=== PATIENT | male | born 1935 | race Caucasian/White ===

== ENCOUNTER 2017-06-12 05:03 | Observation (INO) | payer MEDICARE ==
[~2017-06-12] VITALS: Ht 165.1 cm; Wt 59.4 kg
[2017-06-12] VITALS (13 sets, daily range): BP systolic 137–174; BP diastolic 73–114
[~2017-06-12 05:03] MED LIST: ASCO500C3 PO; BELLADONNA ALK/OPIUM 60MG SUPP PR PRN; CARB-126 PO; CYAN1000 IJ; FINA5TAB67 PO; IRON150C19 PO; MULT1TAB64 PO; SULF-198 PO; TERA5CAP59 PO; VER100 PO; VITAMIN B SHOT
[2017-06-12] MEDS ORDERED: LIDOCAINE/SOD BICARB 8.4% SYR ID ONE (13:30)
[2017-06-12] MEDS ORDERED: FAMOTIDINE 20 MG TAB PO ONE (13:30)
[2017-06-12] MEDS ORDERED: NORMOSOL R SOLN(*) 1000 ML BAG 1,000 ML IV PRN (13:30)
[2017-06-12] MEDS ORDERED: cefTRIAXone 1 GM VIAL IVP ONE (13:30)
[2017-06-12] MEDS ORDERED: MIDAZOLAM 2 MG/2 ML VIAL IVP PRN (13:30)
[2017-06-12] MEDS ORDERED: PROPOFOL EMUL(*) 10MG/ML 20 ML 20 ML ONE (17:20)
[2017-06-12] MEDS ORDERED: ONDANSETRON 4 MG/2 ML VIAL ONE (17:20)
[2017-06-12] MEDS ORDERED: DEXAMETHASONE SOD PHOS 10MG/ML ONE (17:20)
[2017-06-12] MEDS ORDERED: LIDOCAINE MPF 1% 5 ML VIAL ONE (17:20)
[2017-06-12] MEDS ORDERED: GENTAMICIN 80 MG/2 ML VIAL ONE (17:42)
[2017-06-12] MEDS ORDERED: BELLADONNA ALK/OPIUM 60MG SUPP PR ONE (17:50)
[2017-06-12] MEDS ORDERED: WATER FOR IRRIG,STERILE 3000ML IR ONE (18:07)
[2017-06-12] MEDS ORDERED: GLYCOPYRROLATE 0.2 MG/ML SDV ONE (18:40)
[2017-06-12] MEDS ORDERED: PROPANTHELINE BROMIDE 15MG TAB PO PRN (18:45)
[2017-06-12] MEDS ORDERED: LR(*) 1000 ML BAG 1,000 ML IV PRN (18:45)
[2017-06-12] MEDS ORDERED: GLYCOPYRROLATE 0.2 MG/ML SDV IVP PRN (18:45)
[2017-06-12] MEDS ORDERED: FLUSH 10 ML SYR IVP PRN (18:45)
[2017-06-12] MEDS ORDERED: ACETAMIN/CODEINE #3 300-30 MG PO PRN (18:45)
[2017-06-12] MEDS ORDERED: ZOLPIDEM TARTRATE 5 MG TAB PO PRN (18:45)
[2017-06-12] MEDS ORDERED: ONDANSETRON 4 MG/2 ML VIAL IVP PRN (18:45)
[2017-06-12] MEDS ORDERED: HYDROmorphone PCA 6 MG/30 ML IV PRN (18:50)
[2017-06-12] MEDS ORDERED: NALOXONE HCL 0.4 MG/ML VIAL IVP PRN (18:50)
[2017-06-12] MEDS: GENTAMICIN/NS 80 MG/100 ML PB 100 ML IVPB SCH (20:56)
[2017-06-12] MEDS: NEOMYCIN/POLYMYX/BACITR OINT 1 PACKET TP SCH (20:56)
[2017-06-12] MEDS: BENZALKONIUM CL 1:750 TOP SOLN TP SCH (20:56)
[2017-06-12] MEDS: FAMOTIDINE 20 MG TAB PO SCH (20:58)
[2017-06-12] MEDS: DOCUSATE SODIUM 100 MG CAP PO SCH (21:00)
[2017-06-12] MEDS ORDERED: WATER FOR IRRIG,STERILE 3000ML IR PRN (21:15)
--- NOTE | 2017-06-12 22:11 | Hospitalist Progress Note ---
Subjective Progress Notes Subjective Asked to see the patient postoperatively s/p TUR of the median lobe of the prostate. The patient is doing well postoperatively. He was initially admitted 06/04/17 with bleeding from the urinary tract. He was found to have bleeding from his prostate gland at that time. The bleeding was stopped and he was transfused. He returns now to have limited TURP as above. The patient's PMH is significant for advanced Parkinson's disease. Per his external medication history he takes Sinemet 25/100mg and fills 162 tabs for 27 days which would equal 6 tabs daily. The patient is unable to give a medication history. Physical Exam Vital Signs Date Time Temp Pulse Resp B/P (MAP) Pulse Ox O2 Delivery O2 Flow Rate FiO2 06/12/17 19:40 61 12 99 06/12/17 14:13 99.4 174/80 (111) Room Air Intake and Output 06/13/17 07:00 Intake Total 1200 ml Output Total 400 ml Balance 800 ml Intake IV Total 1200 ml Output Urine Total 400 ml General Appearance: Alert, Awake, No Acute Distress Neuro: Other (Masked facies. Bradykinesia with movement and speech.) Eyes: PERRLA Cardiovascular: Regular Rate and Rhythm Respiratory: Clear to Auscultation GI: Soft and Non-Tender Extremities: Warm, Perfused, Other (Excellent distal pulses.) Integumentary: Skin Intact without Lesion / Mass Psych: Appropriate Mood & Affect Assessment and Plan Problems: (1) S/P transurethral resection of prostate Status: Acute Assessment & Plan: Doing well postoperatively. See Dr. Hauser's notes for complete details. (2) Parkinson disease Status: Chronic Assessment & Plan: Will place on Sinemet 25/100 qid and clarify dosing with the patient's family in the morning. Time Spent on Plan of Care: < 30 min IRENE THOMAS MD Jun 12, 2017 22:11
[2017-06-12] MEDS: CARBIDOPA/LEVODOPA 25/100 TAB PO SCH (22:49)
[2017-06-13 01:00] VITALS: BP 135/68
[2017-06-13 02:48] VITALS: BP 140/67
[2017-06-13 07:48] VITALS: BP 143/68
[2017-06-13] MEDS ORDERED: SALINE 0.65% NAS SPR 44 ML BTL PRN (08:35)
--- NOTE | 2017-06-13 08:39 | Hospitalist Progress Note ---
Subjective Progress Notes Subjective Pt. complains of a stuffy nose today. Physical Exam Vital Signs Date Time Temp Pulse Resp B/P (MAP) Pulse Ox O2 Delivery O2 Flow Rate FiO2 06/13/17 07:55 97 Room Air 06/13/17 07:48 97.6 65 16 143/68 (93) 06/12/17 19:45 1.0 General Appearance: Alert, Awake, No Acute Distress Neuro: Other (Masked facies. Bradykinesia.) Eyes: PERRLA Cardiovascular: Regular Rate and Rhythm GI: Soft and Non-Tender Extremities: Warm Psych: Appropriate Mood & Affect Assessment and Plan Problems: (1) S/P transurethral resection of prostate Status: Acute Assessment & Plan: Doing well postoperatively. See Dr. Hauser's notes for complete details. (2) Parkinson disease Status: Chronic Assessment & Plan: Will place on Sinemet 25/100 qid and clarify dosing with the patient's family today. (3) HTN (hypertension) Status: Chronic Assessment & Plan: The patient has been started on a low dose of verapamil 100mg daily. Will order. Exam Sepsis Risk: No Definite Risk IRENE THOMAS MD Jun 13, 2017 08:39
[2017-06-13] MEDS: BENZALKONIUM CL 1:750 TOP SOLN TP SCH (08:42)
[2017-06-13] MEDS: CARBIDOPA/LEVODOPA 25/100 TAB PO SCH (08:43)
[2017-06-13] MEDS: GENTAMICIN/NS 80 MG/100 ML PB 100 ML IVPB SCH (08:43)
[2017-06-13] MEDS: DOCUSATE SODIUM 100 MG CAP PO SCH (08:43)
[2017-06-13] MEDS: NEOMYCIN/POLYMYX/BACITR OINT 1 PACKET TP SCH (08:43)
[2017-06-13] MEDS: FAMOTIDINE 20 MG TAB PO SCH (08:43)
[2017-06-13] MEDS ORDERED: CARB-94 PO (08:47)
[2017-06-13 08:55] VITALS: Ht 165.1 cm; Wt 59.4 kg
[2017-06-13] MEDS ORDERED: VERAPAMIL 100 MG PO SCH (09:00)
[2017-06-13] MEDS ORDERED: CARBIDOPA/LEVODOPA 25/100 TAB PO SCH ×3 (09:00→14:00)
[2017-06-13] MEDS ORDERED: CARBIDOPA/LEVODOPA 25/100 TAB PO ONE (09:00)
[2017-06-13 11:02] VITALS: BP 124/56
[2017-06-13 13:21] LABS: PLATELET COUNT, AUTOMATED 470 K/uL (150-450)
[2017-06-13 14:54] VITALS: BP 137/66
--- NOTE | 2017-06-13 16:12 | OPERATIVE REPORT 1 ---
EVENT DATE: June 12, 2017 SURGEON: Hadley Hauser MD ANESTHESIOLOGIST: Hadley Wolfe MD ANESTHESIA: General. 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 2. Prostate cancer. POSTOPERATIVE DIAGNOSES 1. 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 2. Prostate cancer. PROCEDURES PERFORMED 1. Cystourethroscopy. 2. Transurethral resection of the prostate. 3. Vaporization of the prostate. DESCRIPTION OF PROCEDURE Under general anesthetic, the patient was prepped and draped in the extended lithotomy position. The 21 panendoscope was admitted through the urethra into the bladder. The urethra was normal. The prostate showed trilobar hyperplasia with intravesical extension of the median lobe as previously described. The bladder showed 4+ trabeculation with multiple diverticula. There was an inflammatory reaction where the tip of the catheter was irritating the bladder. No other demonstrable lesions. The resection was begun by resecting the intravesical extension of the median lobe back to the verumontanum. The tissue was resected down to the circular fibers at the bladder neck circumferentially. The lateral lobe of the prostate were transurethral resected back to the verumontanum. This was accomplished bilaterally. The apical tissue was resected bilaterally. Precautions were taken to hopefully minimize risk of erosion of the prostate through to to the rectum by leaving prostate tissue appropriately circumferentially in the prostate. Bleeding was controlled with spot coagulation. The entire prostate capsule was vaporized at the conclusion of the procedure. Estimated blood loss was a few milliliters. The chips were evacuated from the bladder. The bladder was filled under gravity pressure. The scope was withdrawn, and there was good efflux of irrigation fluid. It cut off almost immediately upon withdrawal of the scope. The #20 Jimenez was inserted through the urethra over a catheter guide and secured without any difficulty. Again, irrigation was clear at the conclusion of the procedure. The patient returned to the recovery room in satisfactory condition. This is an 82-year-old white male complaining of hemorrhage from the lower urinary tract. He was transferred from [place], [place], this past Friday. The problem was resolved, and he has recovered satisfactorily. He is up and about. Bowels have been moving quite well in the last two or three days. The patient is ready for further evaluation and therapy. See Operative Note for details. That has been accomplished. See the operative note for details. The patient will be ready for discharge home in the a.m. if all is going well. He is to force fluids 2 L per day. Activities are restricted to careful ambulation. He is to continue his usual medications. He will be discharged on Cipro, Pepcid, Pyridium, Colace, and Vicodin therapy. He is to continue his usual medications. The patient was seen in consultation by the hospitalist as to his parkinsonism and need for verapamil therapy. He will have followup this coming Friday in the office. He is to call for an appointment. Plan cath removal this coming Friday if possible. BENJAMIN
[2017-06-13] MEDS ORDERED: TERA5CAP59 PO (16:27)
[2017-06-13] MEDS ORDERED: PHEN200T32 PO (16:28)
[2017-06-13] MEDS ORDERED: FINA5TAB64 PO (16:28)
[2017-06-13] MEDS ORDERED: FAMO20TA28 PO (16:29)
[2017-06-13] MEDS ORDERED: CIPR-344 PO (16:29)
[2017-06-13] MEDS ORDERED: cefTRIAXone 1 GM VIAL IVP SCH (17:30)
== END 2017-06-13 16:25 | disposition home health service (06) ==
LOC: OR 05:03 → INTOOBSV 19:40 → MED 19:40
DX: C61 Malignant neoplasm of prostate (principal); N40.0 Benign prostatic hyperplasia without lower urinary tract symptoms
CPT/HCPCS: 36415; 52648; 85025; 88305; A4346; A9270; G0378; J0696; J1100; J1580; J2001; J2405; J2704; J3490; 82040; 82247; 82310; 82374; 82435; 82565; 82947; 84075; 84132; 84155; 84295; 84450; 84460; 84520